=== PATIENT | female | born 1990 | race Caucasian/White ===

== ENCOUNTER → 2020-06-13 11:10 | Outpatient (CLI) | payer OTHER, SELFPAY ==
--- NOTE | ~2020-06-13 | US_ITS ---
EXAMINATION: US OB <= 14 weeks fetus DATE: 06/13/2020 11:28 INDICATION: First trimester dating TECHNIQUE: Real-time pelvic transabdominal and transvaginal ultrasound was performed. COMPARISON: None. FINDINGS: The uterus measures 10.2 x 5.2 x 5.2 cm. There is an intrauterine gestational sac. A yolk sac is identified. heart motion is identified measuring 159 beats per minute (bpm) by M-mode Do ppler. The crown rump length measures 1.2 cm , which correlates with an estimated gestational a ge of 7 weeks and 3 day(s) (+/-) 5 day(s). The right ovary is not visualized however no right adnexal abnormality is seen. The left ovary measur es 2.1 x 2.1 x 3.3 cm. There is normal vascular flow in the left ovary. There is no free fluid in the pelvis. IMPRESSION: 1. Live intrauterine with an estimated gestational age of 7 weeks and 3 day(s) (+/-) 5 day( s) and an estimated delivery date of 01/27/2021. Reviewed, dictated and finalized at location B. IMPRESSION: 1. Live intrauterine with an estimated gestational age of 7 weeks and 3 day(s) (+/-) 5 day(s) and an estimated delivery date of 01/27/2021.
== END ==
PROVIDERS: Visit Provider Student in an Organized Health Care Education/Training Program
DX: Z34.90 Encounter for supervision of normal pregnancy, unspecified, unspecified trimester (principal); Z3A.01 Less than 8 weeks gestation of pregnancy
CPT/HCPCS: 76801

== ENCOUNTER 2020-08-14 07:01 | Outpatient (CLI) | payer OTHER, SELFPAY ==
[2020-08-14 07:45] LABS: Basophils Percent Auto 0.3 % (0.2-1.2); Eosinophils Absolute Auto 0.1 K/mm3 (0-0.3); Eosinophils Percent Auto 0.6 % (0-4.4); Hematocrit 33.3 % (37.0-47.0); Hemoglobin 11.6 g/dL (12.0-15.0); Immature Granulocyte Absolute 0.03 K/mm3 (0.00-0.031); Immature Granulocyte Percent A 0.4 % (0-0.5); Lymphocytes Absolute Auto 0.81 K/mm3 (0.9-3.2); Lymphocytes Percent Auto 10.2 % (18.3-44.2); Mean Corpuscular HGB Conc 34.8 g/dl (32-36); Mean Corpuscular Hemoglobin 31.4 pg (26-34); Mean Corpuscular Volume 90.2 fl (80-100); Mean Platelet Volume 10.7 fl (7.4-10.4); Monocytes Absolute Auto 0.5 K/mm3 (0.1-0.6); Monocytes Percent Auto 6.7 % (2.6-8.5); Neutrophils Absolute Auto 6.5 K/mm3 (1.3-6.7); Neutrophils Percent Auto 81.8 % (45.5-73.1); Platelet Count Result 219 k/mm3 (150-375); Red Blood Count 3.69 M/mm3 (4.2-5.4); Red Cell Distribution Width 13.4 % (11.5-14.5); White Blood Count 7.9 K/mm3 (4.5-10.0)
[2020-08-14 07:46] LABS: Add Urine Microscopic? NO; Appearance Urine Clear (Clear); Bilirubin Urine Negative (Negative); Blood Urine Negative (Negative); Color Urine Straw (Yellow); Glucose Urine UA Negative (Negative); Ketones Urine Negative (Negative); Leukocyte Esterase Ur Negative LEU/UL (NEGATIVE); Nitrate Urine Negative (Negative); Protein Urine Negative (Negative); Specific Grav Ur 1.009 (1.001-1.035); Urobilinogen Urine Negative mg/dL (<2.0)
[2020-08-14 09:22] LABS: Vitamin D 25 Hydroxy 40.7 ng/mL
[2020-08-14 09:54] LABS: Hepatitis B Surface Antigen Negative (Negative); Rubella IgG Antibody 36.9 IU/ML
[2020-08-14 09:59] LABS: Hepatitis C Virus Antibody Negative (Negative)
[2020-08-15 09:15] LABS: Rapid Plasma Reagin Non-Reactive (NonReactive)
[2020-08-20 06:04] LABS: Hematocrit 34.9 % (35.0-45.0); Hemoglobin 11.7 g/dL (11.7-15.5); MCH 32.1 pg (27.0-33.0); MCV 95.7 FL (80.0-100.0); Red Blood Cell Count 3.65 Mill/uL (3.80-5.10)
== END 2020-08-14 07:02 | disposition home or self-care (01) ==
PROVIDERS: Visit Provider Student in an Organized Health Care Education/Training Program
DX: Z34.90 Encounter for supervision of normal pregnancy, unspecified, unspecified trimester (principal)
CPT/HCPCS: 36415; 81003; 82306; 83021; 84443; 85025; 86592; 86762; 86787; 86803; 86850; 86900; 86901; 87086; 87088; 87340

== ENCOUNTER 2020-11-03 07:48 | Outpatient (CLI) | payer OTHER, SELFPAY ==
[2020-11-03 09:23] LABS: Basophils Percent Auto 0.2 % (0.2-1.2); Eosinophils Absolute Auto 0.1 K/mm3 (0-0.3); Eosinophils Percent Auto 0.5 % (0-4.4); Hematocrit 32.2 % (37.0-47.0); Hemoglobin 11.4 g/dL (12.0-15.0); Immature Granulocyte Absolute 0.04 K/mm3 (0.00-0.031); Immature Granulocyte Percent A 0.4 % (0-0.5); Lymphocytes Percent Auto 7.3 % (18.3-44.2); Mean Corpuscular HGB Conc 35.4 g/dl (32-36); Mean Corpuscular Hemoglobin 32.5 pg (26-34); Mean Corpuscular Volume 91.7 fl (80-100); Monocytes Absolute Auto 0.7 K/mm3 (0.1-0.6); Monocytes Percent Auto 6.3 % (2.6-8.5); Neutrophils Absolute Auto 9.4 K/mm3 (1.3-6.7); Neutrophils Percent Auto 85.3 % (45.5-73.1); Platelet Count Result 240 k/mm3 (150-375); Red Blood Count 3.51 M/mm3 (4.2-5.4); Red Cell Distribution Width 12.6 % (11.5-14.5)
[2020-11-03 09:27] LABS: Glucose 1 Hour PP 50gm Dose 102 mg/dL
== END 2020-11-03 07:49 | disposition home or self-care (01) ==
PROVIDERS: Visit Provider Student in an Organized Health Care Education/Training Program
DX: Z34.90 Encounter for supervision of normal pregnancy, unspecified, unspecified trimester (principal)
CPT/HCPCS: 36415; 82947; 85025

== ENCOUNTER 2020-11-10 10:47 | Outpatient (RCR) | payer OTHER, SELFPAY ==
[2020-11-11] MEDS: RHO(D) IMMUNE GLOBULIN 300 MCG SYRINGE IM (09:41)
== END 2021-02-08 23:59 | disposition home or self-care (01) ==
LOC: ANHLAB 10:47
PROVIDERS: Visit Provider Student in an Organized Health Care Education/Training Program
DX: Z29.13 Encounter for prophylactic Rho(D) immune globulin (principal); O36.0990 Maternal care for other rhesus isoimmunization, unspecified trimester, not applicable or unspecified; Z3A.00 Weeks of gestation of pregnancy not specified
CPT/HCPCS: 36415; 85461; 90384; 96372; J2790

== ENCOUNTER 2020-12-17 15:42 | Outpatient (CLI) | payer OTHER, SELFPAY ==
[2020-12-17 16:02] LABS: Basophils Percent Auto 0.3 % (0.2-1.2); Eosinophils Absolute Auto 0.1 K/mm3 (0-0.3); Eosinophils Percent Auto 0.8 % (0-4.4); Hematocrit 31.2 % (37.0-47.0); Hemoglobin 10.8 g/dL (12.0-15.0); Immature Granulocyte Absolute 0.05 K/mm3 (0.00-0.031); Immature Granulocyte Percent A 0.5 % (0-0.5); Lymphocytes Absolute Auto 1.14 K/mm3 (0.9-3.2); Lymphocytes Percent Auto 11.5 % (18.3-44.2); Mean Corpuscular HGB Conc 34.6 g/dl (32-36); Mean Corpuscular Hemoglobin 30.7 pg (26-34); Mean Corpuscular Volume 88.6 fl (80-100); Mean Platelet Volume 10.1 fl (7.4-10.4); Monocytes Absolute Auto 0.9 K/mm3 (0.1-0.6); Monocytes Percent Auto 8.7 % (2.6-8.5); Neutrophils Absolute Auto 7.7 K/mm3 (1.3-6.7); Neutrophils Percent Auto 78.2 % (45.5-73.1); Platelet Count Result 230 k/mm3 (150-375); Red Blood Count 3.52 M/mm3 (4.2-5.4); Red Cell Distribution Width 12.7 % (11.5-14.5); White Blood Count 9.9 K/mm3 (4.5-10.0)
[2020-12-17 17:01] LABS: HIV 1/2 Ab P24 Ag Result Negative (Negative)
[2020-12-18 10:10] LABS: Rapid Plasma Reagin Non-Reactive (NonReactive)
== END 2020-12-17 15:43 | disposition home or self-care (01) ==
LOC: ANHLAB 15:44
PROVIDERS: Visit Provider Student in an Organized Health Care Education/Training Program
DX: Z34.90 Encounter for supervision of normal pregnancy, unspecified, unspecified trimester (principal)
CPT/HCPCS: 36415; 85025; 86592; 86703; G0432

== ENCOUNTER 2021-01-14 06:43 | Outpatient (CLI) | payer OTHER, SELFPAY ==
[2021-01-14 07:55] LABS: Glucose Fasting Gestational 82 mg/dL (>/=95)
[2021-01-14 09:54] LABS: Glucose 1 Hour Gest 147 mg/dL (>/=180)
[2021-01-14 10:28] LABS: Glucose 2 Hour Gest 128 mg/dL (>/= 155)
[2021-01-14 11:37] LABS: Glucose 3 Hour Gest 84 mg/dL (>/=140)
== END 2021-01-14 06:44 | disposition home or self-care (01) ==
PROVIDERS: Visit Provider Student in an Organized Health Care Education/Training Program
DX: R73.09 Other abnormal glucose (principal)
CPT/HCPCS: 36415; 82951; 82952

== ENCOUNTER 2021-01-15 13:59 | Outpatient (RCR) | payer OTHER, SELFPAY ==
--- NOTE | ~2021-01-15 | US_ITS ---
EXAMINATION: US OB follow up w BPP EXAM DATE: 01/15/2021 15:29 INDICATION: Large for gestational age. 3rd trimester. TECHNIQUE: Pelvic obstetrical transabdominal sonogram was performed by a technologist. There are mu ltiple grayscale and Doppler images available for interpretation. Comparison is made to prior examina tion from 06/13/2020. FINDINGS: There is a single fetus identified in vertex presentation with a heart rate of 139 beats pe r minute. The placenta is located in the anterior position. There is no sonographic evidence of retr oplacental hemorrhage identified. The amniotic fluid index is 15.3 centimeters, which is normal. BIOPHYSICAL PROFILE (performed by the technologist) breathing (30 sec sustained breathing in 30 minutes): 2 out of 2 movement (3 gross body movements in 30 minutes): 2 out of 2 tone (one episode of euwqbiq-dyqryvqwh-etfjulx limb movement): 2 out of 2 Amniotic fluid pocket (2 cm): 2 out of 2 Total score: 8 out of 8 IMPRESSION: 1. Single fetus with heart rate of 139 bpm. 2. Normal biophysical profile score of 8 out of 8. 3. Normal VERONICA 15 cm. Reviewed, dictated and finalized at location A. ETIC COUNSELOR
[2021-01-15 16:22] VITALS: BP 127/72; PULSE 90
== END 2021-01-21 07:34 | disposition home or self-care (01) ==
LOC: ANHOBOP 13:59
PROVIDERS: Visit Provider Student in an Organized Health Care Education/Training Program
DX: O36.63X0 Maternal care for excessive fetal growth, third trimester, not applicable or unspecified (principal); Z3A.38 38 weeks gestation of pregnancy
CPT/HCPCS: 59025; 76816; 76819

== ENCOUNTER 2021-01-20 08:27 | Inpatient (IN) | payer OTHER, SELFPAY ==
[2021-01-20] VITALS (16 sets, daily range): BP systolic 102–128; BP diastolic 62–79; PULSE 68–104; RESP 16; TEMP 36.3–36.9; O2SAT 96–100; BMI 32.0
--- NOTE | 2021-01-20 08:13 | PM.IMHP ---
H&P: HPI History of Present Illness Date/Time: 01/20/21 08:13 The patient is a 30-year-old 010 last menstrual period 04/13/2020. Patient is currently 39 weeks gestation. Patient is dated by an ultrasound on 06/13/2020 at 7 weeks gestation which provided an estimated due date of January 27, 2021. Patient presents for a scheduled elective primary section in the setting of suspected macrosomia. Patient had an uncomplicated and was referred to [facility] for size greater than dates approximately 2-3 weeks ago. An ultrasound was performed showing a fetus measuring greater than 99th percentile on ultrasound. All laboratory testing was within normal limits. Patient was screened for gestational diabetes again and screening was negative. After lengthy discussion regarding trial of labor in the setting of suspected macrosomia, patient has elected to proceed with a primary section. She reports feeling well today without complaints. Denies any vaginal bleeding, leakage of fluid, or contractions. Reports good movement. Chief Complaint: Elective primary section Suspected macrosomia Narrative: Brianne Delvalle is a 30 year old female Review of Systems Review of Systems: All systems reviewed & are unremarkable except as noted in HPI and below Constitutional: Constitutional: Reports as per HPI, Reports no additional constitutional complaints, Denies chills, Denies fever(s), Denies headache(s) and Denies night sweats Eyes: Eyes: Reports as per HPI and Reports no additional eye complaints ENT: Reports system reviewed and no additional complaints, except as documented, Reports as per HPI, Reports Normal hearing present and Denies headache(s) Cardiovascular: Cardiovascular: Reports as per HPI, Reports no additional cardiovascular complaints, Denies chest pain and Denies dyspnea Respiratory: Respiratory: Reports as per HPI, Reports no additional respiratory complaints, Denies cough and Denies dyspnea Gastrointestinal: Gastrointestinal: Reports as per HPI, Reports no additional gastrointestinal complaints, Denies abdominal pain, Denies change in bowel habits, Denies change in stool character, Denies nausea and Denies vomiting Genitourinary: Genitourinary: Reports no additional female genitourinary complaints, Reports as per HPI, Denies abnormal vaginal bleeding, Denies genital lesions, Denies hot flashes, Denies dyspareunia, Denies pelvic pain, Denies sexual dysfunction, Denies urinary incontinence, Denies vaginal discharge, Denies vaginal dryness and Denies vaginal odor Musculoskeletal: Musculoskeletal: Reports no additional musculoskeletal complaints and Reports as per HPI Integumentary/Breasts: Skin/Breast: Reports system reviewed and no additional complaints, except as docu, Reports as per HPI, Denies breast pain and Denies nipple discharge Neurologic: Reports system reviewed and no additional complaints, except as documented, Reports as per HPI, Reports Normal hearing present and Denies headache(s) Psychiatric: Psychiatric: Reports no additional psychiatric complaints, Reports as per HPI, Denies anxiety and Denies depression Endocrine: Endocrine: Reports no additional endocrine complaints and Reports as per HPI Hematologic/Lymphatic: Hematologic/Lymphatic: Reports no additional hematologic/lymphatic complaints and Reports as per HPI Allergic/Immunologic: Allergic/Immunologic: Reports no additional allergic/immunologic complaints and Reports as per HPI PMFSH Past Medical History Medical History Breast tenderness HPV (human papilloma virus) anogenital infection Pain on intercourse Surgical History Surgical History No significant past surgical history Family History Family History Grandparent Hypertension Cerebrovascula
--- NOTE | 2021-01-20 09:11 | LDADM ---
This patient, Brianne Delvalle, was admitted to Labor/Delivery/Recovery 120 on 01/20/21 at 08:27. Plans for labor, pain management and were discussed with patient. Patient/family oriented to hospital policies and general routines including ID bracelet, bed and alarms, visiting hours, pain management, procedures, bathroom and other care routines, personal items, smoking policy, room service/diet and guest tray routines, security routines, going to room 110 for family to see the through the window if stable, and call light Patient/Family are encouraged to report perceived risks to care and to ask questions if they do not understand what they are told or what they should do. See OBIX for further documentation.
[2021-01-20 09:13] LABS: Basophils Percent Auto 0.2 % (0.2-1.2); Eosinophils Absolute Auto 0.1 K/mm3 (0-0.3); Eosinophils Percent Auto 0.7 % (0-4.4); Hematocrit 32.1 % (37.0-47.0); Immature Granulocyte Absolute 0.05 K/mm3 (0.00-0.031); Immature Granulocyte Percent A 0.5 % (0-0.5); Lymphocytes Absolute Auto 0.87 K/mm3 (0.9-3.2); Lymphocytes Percent Auto 8.6 % (18.3-44.2); Mean Corpuscular HGB Conc 34.3 g/dl (32-36); Mean Corpuscular Hemoglobin 29.1 pg (26-34); Mean Corpuscular Volume 84.9 fl (80-100); Monocytes Absolute Auto 0.8 K/mm3 (0.1-0.6); Monocytes Percent Auto 7.6 % (2.6-8.5); Neutrophils Absolute Auto 8.3 K/mm3 (1.3-6.7); Neutrophils Percent Auto 82.4 % (45.5-73.1); Platelet Count Result 236 k/mm3 (150-375); Red Blood Count 3.78 M/mm3 (4.2-5.4); Red Cell Distribution Width 13.1 % (11.5-14.5); White Blood Count 10.1 K/mm3 (4.5-10.0)
[2021-01-20] MEDS: LACTATED RINGERS 1,000 ML 125 ML IV CONT ×2 (09:28→10:23)
--- NOTE | 2021-01-20 10:22 | WPDHPUPDATE1 ---
History and Physical Update Update Date/Time: 01/20/21 10:22 History and Physical has been reviewed, including an updated exam of the patient. There are NO changes in the patient's condition. Risks, benefits, and alternatives have been discussed and questions answered. Patient agrees to proceed with procedure.
--- NOTE | 2021-01-20 10:31 | WPDANESEPPF ---
Anes - Initial Pre Proc Eval Procedure: Operation Date: 01/20/21 10:30 Proposed Procedures p Primary Section - Whitney Pat MD Date/Time: 01/20/21 10:31 Surgeon: Whitney Pat MD Pre Op Diagnosis: Section Patient Data Age: 30 Gender: F Height: 5 ft 6 in Weight: 90 kg Last Vital Signs Temp 36.8 C 01/20/21 09:36 Pulse 92 01/20/21 08:59 BP 117/79 01/20/21 08:59 Allergies Allergy/AdvReac Type Severity Reaction Status Date / Time No Known Allergies Allergy Verified 01/13/21 14:31 Home Medications Medication Instructions Recorded Confirmed Type PNV 153-FA 400 mcg-om3 35 mg-dha 2 tablet PO DAILY 06/03/20 01/15/21 History 25 mg-epa 5 mg-fish oil chew tablet cetirizine 10 mg disintegrating 10 mg PO DAILY 06/03/20 01/15/21 History tablet fluticasone propionate 50 1 spray NASAL DAILY 06/03/20 01/15/21 History mcg/actuation nasal spray,suspension breast pump #1 ea 01/01/21 01/15/21 Rx Laboratory Tests 01/20/21 01/20/21 08:46 08:46 WBC 10.1 K/mm3 H K/mm3 (4.5-10.0) RBC 3.78 M/mm3 L M/mm3 (4.2-5.4) Hgb 11.0 g/dL L g/dL (12.0-15.0) Hct 32.1 % L % (37.0-47.0) MCV 84.9 fl fl (80-100) MCH 29.1 pg pg (26-34) MCHC 34.3 g/dl g/dl (32-36) RDW 13.1 % % (11.5-14.5) Plt Count 236 k/mm3 k/mm3 (150-375) MPV 11.0 fl H fl (7.4-10.4) Immature Gran % (Auto) 0.5 % % (0-0.5) Neut % (Auto) 82.4 % H % (45.5-73.1) Lymph % (Auto) 8.6 % L % (18.3-44.2) [place] % (Auto) 7.6 % % (2.6-8.5) Eos % (Auto) 0.7 % % (0-4.4) Baso % (Auto) 0.2 % % (0.2-1.2) Lymph # (Auto) 0.87 K/mm3 L K/mm3 (0.9-3.2) [place] # (Auto) 0.8 K/mm3 H K/mm3 (0.1-0.6) Eos # (Auto) 0.1 K/mm3 K/mm3 (0-0.3) Baso # (Auto) 0.0 K/mm3 K/mm3 (0.0-0.1) Abs Immat Gran (auto) 0.05 K/mm3 H K/mm3 (0.00-0.031) Absolute Neuts (auto) 8.3 K/mm3 H K/mm3 (1.3-6.7) Absolute Nucleated RBC 0.0 K/mm3 K/mm3 (0.0-0.012) Nucleated RBC % 0.0 % % (0.0-0.2) RPR Pending Patient hx anesthesia problems: none Family hx anesthesia problems: none [facility] Past Medical History Medical History Breast tenderness HPV (human papilloma virus) anogenital infection Pain on intercourse Surgical History Surgical History No significant past surgical history Family History Family History Grandparent Hypertension Cerebrovascular accident Mother No problems noted. Social History Social History Smoking status: Never smoker Alcohol intake: former Substance use: never Spiritual care concerns: No Anes - Eval Final PreProcedure Day of Procedure 01/20/21 10:31 Patient weight: overweight Heart: regular rate and rhythm Lungs: clear to auscultation Airway: Mallampati scale class II Neurological: alert and oriented Last oral intake: >/= 8 hours ASA classification: II Emergent: no Anesthetic plan: proceed Anesthesia type and monitoring: regional spinal and standard monitoring Informed Consent: The patient's anesthetic plan and its attendant risks and benefits were discussed with the patient/family/POA. Questions were solicited and answers provided to the satisfaction of the patient/family/POA.
[2021-01-20] MEDS: ceFAZolin 2 GM/D5W 50 ML 2 GM/50 ML BAG IVPB (10:52)
--- NOTE | 2021-01-20 11:59 | PM.PROC ---
Procedure Note - Detailed Date of procedure: 01/20/21 Pre-op diagnosis: Section Intrauterine at 39 weeks gestation Suspected macrosomia Post-op diagnosis: same Procedure performed: Primary low transverse section via Pfannenstiel Description of procedure: The patient was taken to the operating room, where she self-transferred to the operating room table. Spinal anesthesia was administered and found to be adequate. The patient was placed in dorsal supine position with a leftward tilt. She was prepped and draped in the usual sterile fashion. Spinal anesthesia was tested and found to be adequate. A Pfannenstiel skin incision was made with a scalpel and carried through to the underlying layer of fascia with the Bovie. The fascia was incised in the midline and the incision was extended laterally with the use of forceps and Ayala scissors. The inferior aspect of the fascial incision was grasped with Murtaza clamps, elevated, and the underlying rectus muscle were dissected off with Ayala scissors. Attention was then turned to the superior aspect of the fascial incision, which in a similar manner, was grasped with Murtaza clamps, elevated, and the underlying rectus muscles were also dissected off with Ayala scissors. The rectus muscles were in the midline and the peritoneal cavity was grasped with hemostats and entered sharply with Metzenbaum scissors. This incision was extended superiorly and inferiorly with good visualization of the bladder and care was taken to avoid blood vessels. A bladder blade was inserted. The vesicouterine peritoneum was identified and incised sharply with Metzenbaum scissors. This incision was extended laterally with Metzenbaum scissors and a bladder flap was created digitally. The bladder blade was replaced. A low-transverse uterine incision was made with a scalpel. This incision was extended laterally with bandage scissors. Amniotomy was performed. Clear amniotic fluid was noted. The 's head was grasped and gently guided to the level of the uterine incision. The infant's head was delivered atraumatically without difficulty followed by the neck, shoulders, and rest of body with gentle fundal pressure. The 's nose and mouth were suctioned bulb suction. The infant was crying spontaneously and also voided as well. The cord was clamped and cut and the was handed off to waiting nursing staff. A segment of cord was collected for cord gases. Cord blood was also collected. The placenta was then delivered manually with gentle uterine massage. Uterus was exteriorized and cleared of all clots and debris. The uterine incision was reapproximated with 0 Vicryl in a running, locked fashion. A second imbricating layer using 0 Monocryl performed. A small area of oozing was noted beneath the incision. A short running segment using 0 Vicryl was placed to ensure excellent hemostasis. On inspection, the uterus, ovaries, and fallopian tubes appeared to be normal bilaterally. The uterus was replaced into the abdominal cavity. The gutters were cleared of all clots and debris. The uterine incision was inspected again and noted to be hemostatic. Hemaderm was applied across the uterine incision. Interceed was also applied across the uterine incision and anterior surface of the uterus. The peritoneum was reapproximated with 2-0 Monocryl. The fascia was then closed with 0 Vicryl in a running fashion. The subcutaneous layer was irrigated with water. Pinpoint areas of bleeding were made hemostatic with Bovie. The subcutaneous layer was reapproximated with 2-0 plain and the skin was then closed with 4-0 Monocryl in a subcuticular fashion. The skin was cleansed and dried. Dermaflex skin adhesive was applied across the incision. A pressure dressing was also applied. The remainder the patient was cleansed and dried. The patient was transferred to the recovery room in stable condition. All sponge, lap, and instrument counts were correct at the end of t
--- NOTE | 2021-01-20 12:13 | P.PCNOB_ITS ---
OB - Delivery Note Procedure Delivery date: 01/20/21 Procedure: Procedures Operation Date: 01/20/21 10:30 <No data on this case meets the specified criteria> Delivery monitor: external FHT Route of delivery: Specimen: Yes (placenta and cord, cord blood, and cord gases) Quantitative Blood Loss (ml): 385 Anesthesia type: Spinal Disposition: PACU Complications: No immediate complications [place] Baby Date of : 01/20/21 Time of : 11:02 Weeks of gestation at delivery: 39 Infant gender: Male Weight (pounds): 8 Weight (ounces): 15 presentation: vertex Placenta delivery description: Manual Removal cord vessel description: 3 Vessels score one minute: 8 score five minutes: 9
[2021-01-20] MEDS: OXYTOCIN 30 UNITS/NS 500 ML 30 UNITS/500 ML BAG 125 UNITS IV CONT (13:01)
--- NOTE | 2021-01-20 15:25 | PC.NURSE ---
Consulted with patient, mother reported infant eagerly fed for first feeding. Mother had some difficulties with positioning/alignment, assisted with pillows and wrist roll for support. Reviewed infant feeding cues, frequencies, duration of feedings, feeding elimination flow sheet, and signs of adequate intake. Demonstrated stimulation techniques to wake for feeding. Assisted with infant to breast. Reviewed positioning/alignment in football, holding breast in C hold and guided asymmetrical latch on. Infant was able to latch correctly within a few attempts. nursed eagerly, with steady draws and frequent swallowing noted. Reviewed signs of a correct latch, effective nursing and suck swallow ratio. was able to maintain latch without discomfort to mother. Nipple care reviewed. Instructed mother to call out for RN assistance if she is unable to latch infant for feeding or she has discomfort with nursing. Instructed feeding should be initiated three hours from start of last feeding or if feeding cues are noted before. Mother voiced understanding of information shared.
[2021-01-20] MEDS: KETOROLAC 30 MG/ML VIAL (*BKC) IV PUSH (15:30)
[2021-01-20] MEDS: DEXTROSE 5%/0.45% SOD CHL 1,000 ML 125 ML IV CONT (16:30)
[2021-01-20] MEDS: IBUPROFEN 600 MG TABLET PO (21:19)
[2021-01-21 04:50] VITALS: BP 105/70; PULSE 87; RESP 16; TEMP 36.3; O2SAT 99
[2021-01-21] MEDS: IBUPROFEN 600 MG TABLET PO ×3 (04:51→19:11)
[2021-01-21 05:25] LABS: Basophils Percent Auto 0.3 % (0.2-1.2); Eosinophils Percent Auto 0.3 % (0-4.4); Hematocrit 28.7 % (37.0-47.0); Hemoglobin 9.5 g/dL (12.0-15.0); Immature Granulocyte Absolute 0.06 K/mm3 (0.00-0.031); Immature Granulocyte Percent A 0.5 % (0-0.5); Lymphocytes Percent Auto 7.9 % (18.3-44.2); Mean Corpuscular HGB Conc 33.1 g/dl (32-36); Mean Corpuscular Hemoglobin 29.3 pg (26-34); Mean Corpuscular Volume 88.6 fl (80-100); Mean Platelet Volume 11.3 fl (7.4-10.4); Monocytes Absolute Auto 0.9 K/mm3 (0.1-0.6); Monocytes Percent Auto 8.1 % (2.6-8.5); Neutrophils Absolute Auto 9.5 K/mm3 (1.3-6.7); Neutrophils Percent Auto 82.9 % (45.5-73.1); Platelet Count Result 189 k/mm3 (150-375); Red Blood Count 3.24 M/mm3 (4.2-5.4); Red Cell Distribution Width 13.1 % (11.5-14.5); White Blood Count 11.5 K/mm3 (4.5-10.0)
[2021-01-21 07:27] LABS: Rapid Plasma Reagin Non-Reactive (NonReactive)
--- NOTE | 2021-01-21 07:31 | WPDANLDPN2 ---
Anes-Prog Note L&D Date/Time: 01/21/21 07:31 Comfortable throughout: section Neuraxial method: spinal Epidural/Spinal procedure site: clean & non-tender Neuro status: Neuro function grossly intact. Cardiovascular status: normal Respiratory status: normal Airway patency: baseline Mental status: baseline Post-Op hydration status: normal Vital Signs: Last Vital Signs Temp 36.3 C L 01/21/21 04:50 Pulse 87 01/21/21 04:50 Resp 16 01/21/21 04:50 BP 105/70 01/21/21 04:50 Pulse Ox 99 01/21/21 04:50 Pain score (VAS): 12/24 I/O: Intake & Output 01/20/21 01/20/21 01/21/21 15:59 23:59 07:59 Intake Total 2930 1000 800 Output Total 7670 048 9002 Balance 1697 125 -400 Post-procedural complaints: pruritis mild, no treatment Patient feedback: Patient satisfied with anesthetic care.
--- NOTE | 2021-01-21 07:32 | WPDANLDNPN2 ---
Anes-Prog Note L&D-Neuraxial Date/Time: 01/21/21 07:32 Neuraxial medications: intrathecal PF morphine Opiod-related complaints: pruritis mild, no treatment Patient feedback: Patient satisfied with post-operative pain management.
--- NOTE | 2021-01-21 08:07 | P.PNOB_ITS ---
OB - PN: Subj Subjective Date/time seen: 01/21/21 08:07 Patient doing well this morning. Pain well controlled with medication. Denies any headache, chest pain, shortness of breath, nausea, or vomiting. Tolerating PO diet. Edwards catheter removed this morning. Patient has not yet voided. Passing flatus. OB - PN: Obj Data Labs CBC & Chem 7: 01/21/21 04:55 Labs: Laboratory Results - last 24 hr 01/20/21 01/20/21 01/20/21 08:46 08:46 08:46 WBC 10.1 H RBC 3.78 L Hgb 11.0 L Hct 32.1 L MCV 84.9 MCH 29.1 MCHC 34.3 RDW 13.1 Plt Count 236 MPV 11.0 H Immature Gran % (Auto) 0.5 Neut % (Auto) 82.4 H Lymph % (Auto) 8.6 L [place] % (Auto) 7.6 Eos % (Auto) 0.7 Baso % (Auto) 0.2 Lymph # (Auto) 0.87 L [place] # (Auto) 0.8 H Eos # (Auto) 0.1 Baso # (Auto) 0.0 Abs Immat Gran (auto) 0.05 H Absolute Neuts (auto) 8.3 H Absolute Nucleated RBC 0.0 Nucleated RBC % 0.0 RPR Non-reactive Blood Type B Negative Antibody Screen Positive Antibody Identification Passive Due to RH Imm Glob Antigen Identification Cancelled CARLA, IgG Interpret Not Performed CARLA, Poly Interpret Negative CARLA, Complement Interp Not Performed 01/21/21 04:55 WBC 11.5 H RBC 3.24 L Hgb 9.5 L Hct 28.7 L MCV 88.6 MCH 29.3 MCHC 33.1 RDW 13.1 Plt Count 189 MPV 11.3 H Immature Gran % (Auto) 0.5 Neut % (Auto) 82.9 H Lymph % (Auto) 7.9 L [place] % (Auto) 8.1 Eos % (Auto) 0.3 Baso % (Auto) 0.3 Lymph # (Auto) 0.90 [place] # (Auto) 0.9 H Eos # (Auto) 0.0 Baso # (Auto) 0.0 Abs Immat Gran (auto) 0.06 H Absolute Neuts (auto) 9.5 H Absolute Nucleated RBC 0.0 Nucleated RBC % 0.0 RPR Blood Type Antibody Screen Antibody Identification Antigen Identification CARLA, IgG Interpret CARLA, Poly Interpret CARLA, Complement Interp OB - PN A/P Assessment and Plan (1) Delivery by section using transverse incision of lower segment of uterus: Code(s): O82 - Encounter for delivery without indication Status: Acute Assessment and Plan: POD#1 doing well continue routine postoperative care pain management PRN encourage ambulation and use of IS Time Spent With Patient Time: Total time spent is greater than 50% in coordination of care (as docu mented) at patient's floor/unit and/or counseling patient: Exam Const: General: cooperative, healthy appearing, comfortable and no acute distress GI: Inspection: non-distended GI Palp: Yes Soft to palpation and No Tenderness to palpation present (GI) Other: inc c/d/i Extrem: Right lower extremity: edema Details: 1+ Left lower extremity: edema Details: 1+ Other: no calf tenderness
[2021-01-21] MEDS: DOCUSATE SODIUM 100 MG CAPSULE PO ×2 (08:24→16:46)
[2021-01-21] MEDS: POLYSACCHARIDE IRON COMPLEX 150 MG CAPSULE PO ×2 (08:25→16:46)
[2021-01-21] MEDS: ACETAMINOPHEN 325 MG TABLET 650 MG PO (08:25)
[2021-01-21] MEDS: MULTIVIT/MIN/PREN/FOL AC/IRON TABLET 1 TAB PO (08:25)
[2021-01-21 08:45] VITALS: BP 108/64; PULSE 98; RESP 16; TEMP 36.9; O2SAT 98
[2021-01-21 08:56] VITALS: PULSE 87; RESP 16; O2SAT 99
--- NOTE | 2021-01-21 11:10 | PC.NURSE ---
Mother called out for assist with feeding. Mother reports infant has been eagerly feeding, she has slight tenderness and difficulties waking at times to feed. Reviewed feeding cues, frequencies, duration of feedings, feeding elimination flow sheet, and signs of adequate intake. Demonstrated stimulation techniques to wake for feeding. Assisted with infant to breast. Reviewed positioning/alignment in football, holding breast in C hold and guided asymmetrical latch on. Infant was able to latch correctly within a few attempts. Infant nursed eagerly, with steady draws and frequent swallowing noted. Reviewed signs of a correct latch, effective nursing and suck swallow ratio. was able to maintain latch. Mother reported tenderness at times, had slipped to shallow latch. Demonstrated how to adjust latch more deeply while feeding. Mother quickly reports she can feel infant is latched more deeply and has minimal tenderness. Suggested to stimulate while feeding to keep infant awake and nursing effectively for increased stimulation and increased intake. Instructed mother to call out for RN assistance if she is unable to latch for feeding or she has discomfort with nursing. Instructed feeding should be initiated three hours from start of last feeding or if feeding cues are noted before. Mother voiced understanding of information shared.
[2021-01-21] MEDS: HYDROcodone/acetaminophen (*CRX) 5-325 MG TABLET 1 TAB PO (12:20)
[2021-01-21 19:00] VITALS: BP 128/76; PULSE 96; RESP 16; TEMP 36.6; O2SAT 99
--- NOTE | 2021-01-22 | PC.NURSE ---
Patient viewed the discharge video Mother & Baby Care, The First Two Weeks . Patient was given the opportunity and encouraged to ask questions. Patient verbalized understanding of information shared and has been given the mother/baby guide for home reference.
[2021-01-22] MEDS: IBUPROFEN 600 MG TABLET PO ×2 (02:27→09:40)
--- NOTE | 2021-01-22 08:09 | PM.OBPNVD ---
OB - PN: Subj Subjective Date/time seen: 01/22/21 08:09 Patient doing well this morning. Pain well controlled with medication. Denies any headache, chest pain, shortness of breath, nausea, or vomiting. Tolerating PO diet. Voiding without difficulty. Passing flatus. Ambulating without difficulty. OB - PN: Obj Data Labs CBC & Chem 7: 01/21/21 04:55 OB - PN A/P Assessment and Plan (1) Delivery by section using transverse incision of lower segment of uterus: Code(s): O82 - Encounter for delivery without indication Status: Acute Assessment and Plan: POD#2 doing well continue routine postoperative care discharge home in stable condition emergency precautions reviewed RTO in 2 weeks for wound check Time Spent With Patient Time: Total time spent is greater than 50% in coordination of care (as documented) at patient's floor/unit and/or counseling patient: Exam Const: General: cooperative, healthy appearing, comfortable and no acute distress GI: Inspection: normal to inspection and non-distended GI Palp: Yes Soft to palpation and No Tenderness to palpation present (GI) Other: inc c/d/i Extrem: Right lower extremity: edema Details: 1+ Left lower extremity: edema Details: 1+ Other: no calf tenderness
--- NOTE | 2021-01-22 08:12 | P.DS_ITS ---
DS: Admitting Diagnosis Admitting Diagnosis Admitting Diagnosis: Intrauterine at 39 weeks gestation DS: Summary Hospital Course Hospital Course: Uncomplicated Time Spent with Patient Time attestation: Total time spent providing and/or coordinating discharge services: DS: Data Data Completed and Pending Pending studies at discharge: Pending at discharge 01/20/21 11:03 Surgical [PTH] Routine Discharge Plan Discharge Attending physician on discharge: Whitney Pat Discharging Clinician: Whitney Pat Anticipated Discharge Date/Time: 01/22/21 08:12 Patient Disposition: Home, Self-Care Activity: as tolerated and pelvic rest Diet: regular Discharge Instructions: Call office ([phone]) to schedule the following appointments: 1. Postoperative/wound check in 2 weeks. 2. visit in 4-6 weeks. You may take Ibuprofen 600mg every 6 hours as needed for pain. I have sent a prescription for a stronger pain medication, [place], to your pharmacy. You may take this as prescribed for breakthrough pain (pain that is not controlled with Ibuprofen). No driving for at least two weeks. You also may not drive while taking narcotics. Pain medication may make you constipated. It may be helpful to take an [id number] stool softener, such as Colace and/or Senokot, along with the pain medication to help lessen constipation. Call office or go to ED for pain not controlled with medication, headache, chest pain, shortness of breath, fever, chills, persistent nausea or vomiting, severe abdominal pain, heavy vaginal bleeding >2 pads/hour, foul vaginal discharge or odor, any redness near incision, severe pain, pus or drainage from incision site, or problems with your breasts. Patient Instructions: Antibiotic Form Stand Alone Forms: General Discharge Information Follow-up/Referrals: Whitney Pat MD [Physician] - Discharge Medications: New hydrocodone-acetaminophen 5-325 mg Tablet 1 - 2 tablet PO Q4-6H PRN (Reason: Moderate Pain (4-6)) Qty: 20 RF: 0 Continued fluticasone propionate [Flonase Allergy Relief] 50 mcg/actuation spray,suspension 1 spray NASAL DAILY RF: 0 Gummies 400 mcg-35 mg- 25 mg-5 mg tablet,chewable 2 tablet PO DAILY RF: 0 Children's Zyrtec Allergy 10 mg tablet,disintegrating 10 mg PO DAILY RF: 0 (DME) breast pump [Pump In Style Advanced] Device See Rx Instructions .ROUTE .MEDSUPPLY Qty: 1 RF: 0 Date of admission: 01/20/21 08:27 Admitting Provider: Whitney Pat Attending physician on admission: Whitney aPt Condition: Stable
--- NOTE | 2021-01-22 08:15 | PC.NURSE ---
Observed mother verbalizes she is able to independently latch with appropriate positioning/alignment. She denies any nipple discomfort, is feeding as required and waking to feed if needed. is feeding as required with at least 8 effective feedings in the past 24 hours, and is currently meeting outcomes for weight, output, jaundice and feeding frequencies. Mother states she feels confident to continue effective at home. Reviewed transition to breast milk, signs of adequate intake, and engorgement/relief. Instructed to call ICP if intake/output less than required. Reviewed regular medications mother is taking. Information provided per Franc[place]ka. Reviewed community resources on the [facility] website and in the Mom/Baby guide. Information on outpatient services provided. Mother has no further questions at this time.
[2021-01-22 09:20] VITALS: BP 114/78; PULSE 93; RESP 18; TEMP 36.5; O2SAT 100
[2021-01-22] MEDS: MULTIVIT/MIN/PREN/FOL AC/IRON TABLET 1 TAB PO (09:39)
[2021-01-22] MEDS: POLYSACCHARIDE IRON COMPLEX 150 MG CAPSULE PO (09:39)
[2021-01-22] MEDS: DOCUSATE SODIUM 100 MG CAPSULE PO (09:39)
--- NOTE | 2021-01-22 15:36 | PC.NURSE ---
1056 Patient and FOB asked to read their discharge instructions for mom and baby; they stated they did and had no questions for nurse. Mother signed discharge papers.
[2021-01-23 13:41] VITALS: BP 123/76; PULSE 90; RESP 18; TEMP 36.8; O2SAT 100
== END 2021-01-22 11:00 | disposition home or self-care (01) | DRG 788 ==
LOC: ANHLDR 08:32 → ANHOB2 14:45
PROVIDERS: Admitting Provider Student in an Organized Health Care Education/Training Program; Visit Provider Student in an Organized Health Care Education/Training Program
PROC: 10D00Z1 Extraction of Products of Conception, Low, Open Approach (ICD-10-PCS; CPT 59514; principal; 2021-01-20 10:30)
DX: O36.63X0 Maternal care for excessive fetal growth, third trimester, not applicable or unspecified (principal); Z37.0 Single live birth; Z3A.39 39 weeks gestation of pregnancy
CPT/HCPCS: 36415; 85025; 86592; 86850; 86880; 86900; 86901; 86902; 88307; A9270; J0131; J0690; J1885; J2274; J2590; J7120

== ENCOUNTER 2022-04-18 08:32 | Emergency (ER) | payer OTHER, SELFPAY ==
--- NOTE | ~2022-04-18 | XR_ITS ---
EXAMINATION: XR ankle RT min 3V INDICATION: Right ankle pain TECHNIQUE: Four views of the right ankle are obtained COMPARISON: None available FINDINGS: There is dorsal and lateral soft tissue swelling of the foot. Bone alignment is normal. The re is no fracture. IMPRESSION: 1. No acute osseous abnormality. Reviewed, dictated and finalized at location A.
--- NOTE | ~2022-04-18 | XR_ITS ---
EXAMINATION: XR foot LT min 3V DATE: 04/18/2022 09:28 INDICATION: Left foot pain TECHNIQUE: Dorsoplantar, lateral, and 2 oblique views of the left foot were obtained. COMPARISON: None. FINDINGS: There is no fracture, dislocation, or subluxation. The bones and joint spaces are normal. T here is dorsal lateral soft tissue swelling of the foot. IMPRESSION: 1. No acute osseous abnormality. Reviewed, dictated and finalized at location A.
--- NOTE | 2022-04-18 08:53 | ED.LOWEXIN ---
HPI - Extremity Injury (Lower) General Chief Complaint: Extremity Injury, Lower Stated Complaint: lt foot inj Time Seen by Provider: 04/18/22 08:58 Source: patient and RN notes reviewed Mode of arrival: ambulatory Limitations: no limitations History of Present Illness HPI Narrative: 32-year-old female presents concern for bilateral lower extremity injuries. Reports last night she was at the top of 2 stairs when she turned and fell rolling both of her ankles and falling down the steps. She reports right ankle pain and left foot pain. Reports she has been limping. Reports she is ibuprofen overnight which helped ease the pain. Reports swelling and bruising to the right foot and pain to the left foot MD complaint: foot injury Related Data Home Medications Medication Instructions Recorded Confirmed cetirizine 10 mg disintegrating 10 mg PO DAILY 06/03/20 01/15/21 tablet (Children's Zyrtec Allergy) cholecalciferol (vitamin D3) 25 25 mcg PO DAILY 02/04/21 mcg (1,000 unit) capsule Allergies Allergy/AdvReac Type Severity Reaction Status Date / Time No Known Allergies Allergy Verified 04/18/22 09:11 Review of Systems Review of Systems: CONSTITUTIONAL: Denies malaise, chills, sweats, or fever. SKIN: Denies rash or itching, open skin, laceration, abrasion, redness, warmth MUSCULOSKELETAL: Reports left foot pain, right ankle pain swelling, and bruising NEUROLOGIC: Denies numbness, weakness All systems reviewed & are unremarkable except as noted in HPI and below PMFSH Past Medical History Medical History Breast tenderness HPV (human papilloma virus) anogenital infection Pain on intercourse Surgical History Surgical History History of section x 1 Family History Family History Grandparent Hypertension Cerebrovascular accident Mother No problems noted. Social History Social History Smoking status: Never smoker Alcohol intake: former Substance use: never Spiritual care concerns: No Comments At time of signature, agree with nursing past medical, surgical, social and family history. There is no relevant family history pertinent to the presenting complaint Exam Narrative: GENERAL: Well-appearing, well-nourished, and in no acute distress. HEAD: Normocephalic, atraumatic. EYES: PERRLA, conjunctivae clear NECK: Supple. CHEST: Speaks in full sentences. No respiratory distress. HEART: Regular rate and rhythm. Normal and equal peripheral pulses. EXTREMITIES: Right ankle, foot, digits have normal strength and sensation, grossly normal range of motion. Lateral foot edema hematoma noted, tenderness at that site. 5/5 strength with digit flexion and extension. Normal sensation with sensitivity to light touch and pain. No point tenderness. No open wounds, no skin tenting, no devitalized tissue or atrophy, no trophic changes, no obvious deformity, alignment normal, nearby joints and structures intact. Distal pulses palpable and equal bilaterally, skin warm, dry, pink. Capillary refill less than 3 seconds. Left foot, digits have normal strength and sensation, normal range of motion. No edema or ecchymosis. 5/5 strength with ankle and digit flexion and extension. Normal sensation with sensitivity to light touch and pain. Medial foot tenderness. No open wounds, no skin tenting, no devitalized tissue or atrophy, no trophic changes, no obvious deformity, alignment normal, nearby joints and structures intact. Distal pulses palpable and equal bilaterally, skin warm, dry, pink. Capillary refill less than 3 seconds. SKIN: Warm, dry, no rash. NEURO: Alert and oriented x3. PSYCH: Normal mood and affect Course Course Emergency Course: Patient is aware of diagnosi
[2022-04-18 08:58] VITALS: BP 123/70; PULSE 75; RESP 20; TEMP 36.9; O2SAT 100
== END 2022-04-18 10:37 | disposition home or self-care (01) ==
PROVIDERS: Emergency Provider Nurse Practitioner; PCP Family Medicine
DX: S93.401A Sprain of unspecified ligament of right ankle, initial encounter (principal); W10.9XXA Fall (on) (from) unspecified stairs and steps, initial encounter; S93.602A Unspecified sprain of left foot, initial encounter
CPT/HCPCS: 73610; 73630; 99213; G0463

== ENCOUNTER 2023-02-02 09:18 | Outpatient (CLI) | payer OTHER, SELFPAY ==
[2023-02-02 19:37] LABS: Basophils Percent Auto 0.5 % (0.2-1.2); Eosinophils Absolute Auto 0.1 K/mm3 (0-0.3); Eosinophils Percent Auto 1.2 % (0-4.4); Hematocrit 40.6 % (37.0-47.0); Hemoglobin 13.8 g/dL (12.0-15.0); Immature Granulocyte Absolute 0.01 K/mm3 (0.00-0.031); Immature Granulocyte Percent A 0.2 % (0-0.5); Lymphocytes Absolute Auto 1.43 K/mm3 (0.9-3.2); Lymphocytes Percent Auto 22.1 % (18.3-44.2); Mean Corpuscular Hemoglobin 30.1 pg (26-34); Mean Corpuscular Volume 88.5 fl (80-100); Mean Platelet Volume 10.3 fl (7.4-10.4); Monocytes Absolute Auto 0.6 K/mm3 (0.1-0.6); Monocytes Percent Auto 9.1 % (2.6-8.5); Neutrophils Absolute Auto 4.3 K/mm3 (1.3-6.7); Neutrophils Percent Auto 66.9 % (45.5-73.1); Platelet Count Result 263 k/mm3 (150-375); Red Blood Count 4.59 M/mm3 (4.2-5.4); Red Cell Distribution Width 13.4 % (11.5-14.5); White Blood Count 6.5 K/mm3 (4.5-10.0)
[2023-02-02 19:49] LABS: Alanine Aminotransferase 31 U/L (6-35); Albumin Level 4.7 g/dL (3.5-5.1); Alkaline Phosphatase 75 U/L (38-126); Anion Gap 8 mmol/L (8-16); Aspartate Amino Transferase 29 U/L (14-36); Bilirubin,Total 0.4 mg/dL (0.2-1.3); Blood Urea Nitrogen 10 mg/dL (7-17); Calcium 9.2 mg/dL (8.4-10.2); Carbon Dioxide 28 mmol/L (22-30); Chloride 103 mmol/L (98-107); Cholesterol 176 mg/dL (0-200); Estimated Glomerular Filt Rate > 60; Glucose 78 mg/dL (65-110); HDL Direct 55 mg/dL; Potassium 4.9 mmol/L (3.4-5.0); Sodium 139 mmol/L (137-145); Triglycerides 75 mg/dL (<150)
[2023-02-02 20:05] LABS: LDL Cholesterol Direct 91 mg/dL
== END 2023-02-02 09:19 | disposition home or self-care (01) ==
LOC: ANHGOSHLAB 09:20
PROVIDERS: PCP Internal Medicine; Visit Provider Nurse Practitioner
DX: Z13.220 Encounter for screening for lipoid disorders (principal); Z13.228 Encounter for screening for other metabolic disorders
CPT/HCPCS: 36415; 80053; 80061; 85025

== ENCOUNTER 2024-01-25 08:24 | Outpatient (CLI) | payer OTHER, SELFPAY ==
[2024-01-25 11:32] LABS: Basophils Percent Auto 0.6 % (0.2-1.2); Eosinophils Absolute Auto 0.2 K/mm3 (0-0.3); Eosinophils Percent Auto 3.4 % (0-4.4); Hematocrit 40.9 % (37.0-47.0); Hemoglobin 13.5 g/dL (12.0-15.0); Immature Granulocyte Absolute 0.01 K/mm3 (0.00-0.031); Immature Granulocyte Percent A 0.2 % (0-0.5); Lymphocytes Absolute Auto 1.51 K/mm3 (0.9-3.2); Lymphocytes Percent Auto 30.4 % (18.3-44.2); Mean Corpuscular Volume 90.9 fl (80-100); Mean Platelet Volume 10.8 fl (7.4-10.4); Monocytes Absolute Auto 0.5 K/mm3 (0.1-0.6); Monocytes Percent Auto 9.1 % (2.6-8.5); Neutrophils Absolute Auto 2.8 K/mm3 (1.3-6.7); Neutrophils Percent Auto 56.3 % (45.5-73.1); Platelet Count Result 234 k/mm3 (150-375); Red Cell Distribution Width 13.8 % (11.5-14.5)
[2024-01-25 11:53] LABS: Alanine Aminotransferase 30 U/L (6-35); Albumin Level 4.4 g/dL (3.5-5.1); Alkaline Phosphatase 64 U/L (38-126); Anion Gap 4 mmol/L (8-16); Aspartate Amino Transferase 39 U/L (14-36); Bilirubin,Total 0.8 mg/dL (0.2-1.3); Blood Urea Nitrogen 12 mg/dL (7-17); Calcium 9.4 mg/dL (8.4-10.2); Carbon Dioxide 30 mmol/L (22-30); Chloride 99 mmol/L (98-107); Cholesterol 188 mg/dL (0-200); Estimated Glomerular Filt Rate > 60; Glucose 79 mg/dL (65-110); HDL Direct 69 mg/dL; Potassium 4.3 mmol/L (3.4-5.0); Sodium 133 mmol/L (137-145); Triglycerides 50 mg/dL (<150)
[2024-01-25 12:04] LABS: LDL Cholesterol Direct 101 mg/dL
== END 2024-01-25 08:25 | disposition home or self-care (01) ==
LOC: ANHGOSHLAB 08:26
PROVIDERS: PCP Internal Medicine; Visit Provider Clinical Nurse Specialist
DX: Z13.220 Encounter for screening for lipoid disorders (principal); Z13.228 Encounter for screening for other metabolic disorders
CPT/HCPCS: 36415; 80053; 80061; 85025